=== PATIENT | female | born 1965 ===

== ENCOUNTER 2021-12-04 09:45 | Inpatient (IN) | payer OTHER ==
[~2021-12-04] VITALS: Ht 165.1 cm; Wt 127.0 kg
[2021-12-04] MEDS ORDERED: SYNTHROID50 MCG PO (11:22)
[2021-12-04] MEDS ORDERED: TOPROL XL25 M1 PO (11:22)
== END 2021-12-07 15:01 | disposition home or self-care (01) | DRG 743 ==
LOC: OB/GYN 12-05 05:20 → O/R 12-05 05:20 → SURH 12-05 09:45 → OB/GYN 12-05 11:23 → SURH 12-05 16:00 → OB/GYN 12-07 15:01
PROVIDERS: ADMIT Specialist; ATTEND Specialist
PROC: 0UT70ZZ Resection of Bilateral Fallopian Tubes, Open Approach (ICD-10-PCS; 2021-12-05)
PROC: 0UT20ZZ Resection of Bilateral Ovaries, Open Approach (ICD-10-PCS; 2021-12-05)
PROC: 0DTU0ZZ Resection of Omentum, Open Approach (ICD-10-PCS; 2021-12-05)
PROC: 3E1M38Z Irrigation of Peritoneal Cavity using Irrigating Substance, Percutaneous Approach (ICD-10-PCS; 2021-12-05)
PROC: 0UB10ZZ Excision of Left Ovary, Open Approach (ICD-10-PCS; principal; 2021-12-05 16:00)
DX: D27.1 Benign neoplasm of left ovary (principal); Z20.822 Contact with and (suspected) exposure to COVID-19